=== PATIENT | female | born 1990 ===

== ENCOUNTER 2017-10-12 07:52 | Outpatient (CLI) | payer OTHER ==
--- NOTE | 2017-10-12 09:27 | Ultrasound Report ---
Limited abdominal ultrasound: 36 week presenting with nausea and vomiting. Images of the liver and pancreas are unremarkable. The gallbladder is normally distended. Multiple echodensities are casting similar shadows from the lumen. The gallbladder wall is not thickened and there is no pericolic cystic fluid. The CBD width is 2 mm. The right renal length is 12 cm and the kidney is echogenically normal. The proximal abdominal aorta is unremarkable. Impression: Cholelithiasis.
== END 2017-10-12 07:53 | disposition home or self-care (01) ==
LOC: SPVWC 07:52
PROVIDERS: ATTEND Obstetrics & Gynecology
DX: O99.613 Diseases of the digestive system complicating pregnancy, third trimester (principal); O21.2 Late vomiting of pregnancy; O26.893 Other specified pregnancy related conditions, third trimester; K80.20 Calculus of gallbladder without cholecystitis without obstruction; K90.49 Malabsorption due to intolerance, not elsewhere classified; Z3A.36 36 weeks gestation of pregnancy
CPT/HCPCS: 76705